=== PATIENT | female | born 1945 | race Caucasian/White ===

== ENCOUNTER 2019-10-31 11:12 | Emergency (ER) | payer MEDICARE ==
[~2019-10-31] VITALS: Ht 165.1 cm; Wt 54.4 kg
--- NOTE | 2019-10-31 12:15 | Diagnostic Imaging Report ---
Exam: Head CT without contrast History: Left facial droop Comparison studies: None Technique: Axial images were obtained from the skull base to the vertex. Coronal and sagittal images reconstructed from the axial data. Dose modulation, iterative reconstruction, and/or weight based adjustment of the mA/kV was utilized to reduce the radiation dose to as low as reasonably achievable. Radiation dose: Total DLP: 921 mGy*cm. Estimated effective dose: DLP x 0.015 Intravenous contrast: None Findings: Scalp: No abnormalities. Bones: No fractures, blastic or lytic lesions. Brain sulci: Mildly prominent. Ventricles: Mild compensatory dilatation. No hydrocephalus. Extra-axial spaces: No masses, no fluid collection. Parenchyma: No abnormal densities. No masses, hemorrhage, acute or chronic vascular insults. Sellar/suprasellar region: No abnormalities. Craniocervical junction: Patent foramen magnum. No Chiari one malformation. Incidental findings: Atherosclerotic calcifications in the carotid siphons.. IMPRESSION: 1. No acute intracranial abnormalities. 2. Mild generalized parenchymal volume loss. Brain MRI could be considered to further evaluate if symptoms persist. Signed by: Dr. William Alanis M.D. on 10/31/2019 12:12 PM
--- NOTE | 2019-10-31 13:28 | Emergency Department Note ---
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 PATIENT UNABLE TO FULLY CLOSE LEFT EYE, OR RAISE EYEBROW ON THAT SIDE. Historian: Patient, Family Member Arrival Mode: [place] [facility] Required: No Onset (how long ago): day(s) (2) Location: LEFT FACE Quality: WEAK/NUMB Radiation: Reports non-radiation Severity: moderate Onset quality: sudden Timing of current episode: constant Progression: unchanged Chronicity: new Context: Denies recent illness Relieving factors: none Exacerbating factors: none Associated symptoms: Reports denies other symptoms Past Medical/Family History Physician Review I have reviewed the patient's past medical and family history. Any updates have been documented here. Past Medical History Recent Fever: No Clinical Suspicion of Infectio: No New/Unexplained Change in Ment: No Past Medical History: Hyperlipedemia Other Medical History: OVERACTIVE BLADDER Past Surgical History: T&A, Tubal Ligation, Social History Smoking Cessation: Never Smoker Counseling Performed: No Alcohol Use: None Any Illegal Drug Use: No TB Exposure/Symptoms: No Physically hurt or threatened: No Family History Family history of heart diseas: No Other Any Pre-Existing Lines (PICC,: No Review of Systems Review of Systems Constitutional: Reports no symptoms EENTM: Reports no symptoms Cardiovascular: Reports no symptoms Respiratory: Reports no symptoms Gastrointestinal: Reports no symptoms Genitourinary: Reports no symptoms Musculoskeletal: Reports no symptoms Integumentary: Reports no symptoms Neurological: Reports as per HPI, Reports numbness, Reports paresthesia, Reports weakness Psychological: Reports no symptoms Endocrine: Reports no symptoms Hematological/Lymphatic: Reports no symptoms Physical Exam Related Data Allergies: Coded Allergies: Penicillins (Verified Allergy, Severe, 10/31/19) latex (Verified Allergy, Severe, 10/31/19) Triage Vital Signs Vital Signs Date Time Temp Pulse Resp B/P (MAP) Pulse Ox O2 Delivery O2 Flow Rate FiO2 10/31/19 11:27 98.4 68 16 184/78 98 Room Air Vital signs reviewed: Yes Physical Exam CONSTITUTIONAL Constitutional: Present well-developed, Present well-nourished HENT HENT: Present normocephalic, Present atraumatic, Present oropharynx clear/moist, Present nose normal HENT L/R: Present left ext ear normal, Present right ext ear normal EYES Eyes: Reports PERRL, Reports conjunctivae normal NECK Neck: Present ROM normal PULMONARY Pulmonary: Present effort normal, Present breath sounds normal CARDIOVASCULAR Cardiovascular: Present regular rhythm, Present heart sounds normal, Present capillary refill normal, Present normal rate GASTROINTESTINAL Abdominal: Present soft, Present nontender, Present bowel sounds normal GENITOURINARY Genitourinary: Present exam deferred SKIN Skin: Present warm, Present dry MUSCULOSKELETAL Musculoskeletal: Present ROM normal NEUROLOGICAL Neurological: Present alert, Present oriented x 3, Present cranial nerve deficit (LEFT FACIAL DROOP AFFECTING EYEBROW/FOREHEAD, UNABLE TO COMPLETELY CLOSE LEFT EYE), Present sensory deficit (DECR TOUCH SENS LEFT FACE) PSYCHOLOGICAL Psychological: Present mood/affect normal, Present judgement normal Results Imaging Imaging results reviewed: Yes Assessment & Plan Medical Decision Making MDM CLINICALLY PT WITH CASTRO'S PALSY X 2 DAYS, SENT FROM [facility] FOR CT - WILL GET CT Reassessment Reassessment DC HOME, [place], PREDNISONE TAPER, F/U PCP AND REFER TO NEURO Assessment & Plan Final Impression: (1) Castro's palsy Depart Disposition: HOME, SELF-CARE Last Vital Signs Date Time Temp Pulse Resp B/P (MAP) Pulse Ox O2 Delivery O2 Flow Rate FiO2 10/31/19 11:27 98.4 68 16 184/78 98 Room Air ADISLON CAGLE MD Oct 31, 2019 13:28
[2019-10-31 13:32] VITALS: BP 154/73
== END 2019-10-31 13:33 | disposition home or self-care (01) ==
LOC: ER 11:57
DX: G51.0 Bell's palsy (principal); E78.5 Hyperlipidemia, unspecified
CPT/HCPCS: 70450; 99283